=== PATIENT | male | born 1955 | race Caucasian/White ===

== ENCOUNTER 2016-10-09 10:54 | Observation (INO) | payer BC, OTHER ==
[~2016-10-09] VITALS: Ht 182.9 cm; Wt 91.0 kg
[2016-10-09] VITALS (8 sets, daily range): BP systolic 127–144; BP diastolic 74–84; PULSE 60–78; RESP 14–18; TEMP 98.1–98.3; O2SAT 96–100
[~2016-10-09 10:54] MED LIST: ALPR0.5T99 PO; FISH300C2 PO; PYRI25TA9 PO
[2016-10-09] MEDS ORDERED: GABA600T PO (11:07)
[2016-10-09] MEDS ORDERED: ACETAMINOPHEN/HYDROcodone 325 MG/5 MG TAB PO ONE (11:30)
[2016-10-09] MEDS ORDERED: SODIUM CHLORID 0.9% 500 ML INJ 500 ML IV ONE (11:30)
[2016-10-09 12:03] LABS: AUTOMATED NEUTROPHIL # 3.5 TH/MM3 (1.8-7.7); BASOPHIL % 0.8 % (0.0-2.0); EOSINOPHIL # 0.1 TH/MM3 (0-0.4); EOSINOPHIL % 1.7 % (0.0-4.0); HEMO FLAGS DIFF FINAL; LYMPH % 23.5 % (9.0-44.0); LYMPHOCYTE # 1.2 TH/MM3 (1.0-4.8); MEAN CELL VOLUME 92.1 FL (80.0-100.0); MEAN CORPUSCULAR HEMOGLOBIN 31.2 PG (27.0-34.0); MEAN CORPUSCULAR HGB CONC 33.9 % (32.0-36.0); MONO % 7.7 % (0.0-8.0); NEUT % 66.3 % (16.0-70.0); PLATELET COUNT 229 TH/MM3 (150-450); RED BLOOD COUNT 4.67 MIL/MM3 (4.50-5.90); RED CELL DISTRIBUTION WIDTH 12.8 % (11.6-17.2); WHITE BLOOD COUNT 5.2 TH/MM3 (4.0-11.0)
[2016-10-09 12:09] LABS: PROTHROMBIN TIME - PATIENT 10.8 SEC (9.8-11.6)
[2016-10-09 12:23] LABS: BICARBONATE 26.2 MEQ/L (21.0-32.0); POTASSIUM 4.7 MEQ/L (3.5-5.1)
[2016-10-09] MEDS ORDERED: IOHEXOL 350 MG/ML 10 ML VIAL (for RAD DIAG) IV ONE (13:06)
--- NOTE | 2016-10-09 13:39 | RADRPT ---
EXAM DATE/TIME: 10/09/2016 12:38 [facility] COMPARISON: No previous studies available for comparison. INDICATIONS : Trauma, fall from ladder today. IV CONTRAST: 86 cc Omnipaque 350 (iohexol) IV ORAL CONTRAST: No oral contrast ingested. RADIATION DOSE: 11.79 CTDIvol (mGy) ; Combined studies MEDICAL HISTORY : None SURGICAL HISTORY : None. ENCOUNTER: Initial ACUITY: 1 day PAIN SCALE: 8/10 LOCATION: Bilateral pelvis TECHNIQUE: Volumetric scanning of the pelvis was performed. Using automated exposure control and adjustment of the mA and/or kV according to patient size, radiation dose was kept as low as reasonabl y achievable to obtain optimal diagnostic quality images. FINDINGS: MUSCULOSKELETAL: Mildly comminuted fracture of the superior pubic ramus on the left extending int o the left pubic body, minimally displaced. One bone width displacement of MID inferior pubic ramus f racture on the left. Adjacent soft tissue swelling/small extraperitoneal hematoma adjacent to the pub ic rami fractures. Mild cortical irregularity of the anterior surface of the right sacral ala indica ting nondisplaced fracture. Sacroiliac joints show mild arthritic findings but are otherwise within n ormal limits. Bilateral pars interarticularis defects at L5. Grade 1 anterolisthesis. This finding is chronic. BOWEL/MESENTERY: The visualized small and large bowel demonstrate no acute abnormality. There is no free fluid. BLADDER: There is no wall thickening or mass. RETROPERITONEUM: There is no aneurysm or lymphadenopathy. REPRODUCTIVE: Within normal limits. INGUINAL: There is no lymphadenopathy or hernia. CONCLUSION: 1. Left-sided pubic rami fractures and right-sided nondisplaced sacral ala fracture. These findings a re acute. 2. Chronic pars interarticularis defects and grade 1 anterolisthesis of L5-S1. Dereck Ross MD on October 09, 2016 at 13:30 Board Certified Radiologist. This report was verified electronically.
--- NOTE | 2016-10-09 13:57 | PD ---
HPI Chief Complaint: Fall Time Seen by Provider: 11:21 Travel History International Travel<30 days: No Contact w/Intl Traveler<30days: No Traveled to known affect area: No History of Present Illness HPI Patient is a 61-year-old male who comes in complaining of elbow pain after fall today. He was on a ladder when a tree branch knocked the ladder out from under him and he fell he says, on his right hip. He says he feels a crunching in his groin area. He says he has increased pain with movement of his legs. He denies hitting his head. He denies any other injuries. He denies any pain to his back or his upper extremities. He was in his usual state of health prior to the event. [facility] Past Medical History Medical other: Yes (CHRONIC PAIN) Psychiatric: Yes Past Surgical History Other Surgery: Yes (BILAT CARPAL TUNNEL) Social History Alcohol Use: Yes (OCC) Tobacco Use: No Substance Use: No Allergies-Medications (Allergen,Severity, Reaction): Coded Allergies: No Known Allergies (Verified , 10/09/16) Reported Meds & Prescriptions Reported Meds & Active Scripts Active Reported Gabapentin Unknown Strength Tab Unknown Dose PO BID Review of Systems Except as stated in HPI: all other systems reviewed are Neg General / Constitutional: No: Fever, Chills HENT: No: Headaches, Lightheadedness Cardiovascular: No: Chest Pain or Discomfort Respiratory: No: Shortness of Breath Gastrointestinal: No: Nausea, Vomiting, Abdominal Pain Genitourinary: Positive: Pelvic Pain, No: Dysuria Musculoskeletal: Positive: Pain Skin: No Rash, No Change in Pigmentation Neurologic: No: Weakness, Dizziness Physical Exam Narrative GENERAL: Awake and alert, in no acute distress. SKIN: Focused skin assessment warm/dry. HEAD: Atraumatic. Normocephalic. EYES: Pupils equal and round. No scleral icterus. Extraocular movements intact. ENT: No nasal bleeding or discharge. Mucous membranes pink and moist. NECK: Trachea midline. No JVD. No cervical spine tenderness. CARDIOVASCULAR: Regular rate and rhythm. No murmur appreciated. RESPIRATORY: No accessory muscle use. Clear to auscultation. Breath sounds equal bilaterally. GASTROINTESTINAL: Abdomen soft, non-tender, nondistended. MUSCULOSKELETAL: No obvious deformities. No clubbing. No cyanosis. No edema. No tenderness to palpation of the pelvis. Pain with external and internal rotation of both hips. Pedal pulses intact. NEUROLOGICAL: Awake and alert. No obvious cranial nerve deficits. Motor grossly within normal limits. Normal speech. PSYCHIATRIC: Appropriate mood and affect; insight and judgment normal. Data Data Last Documented VS Vital Signs Date Time Temp Pulse Resp B/P Pulse Ox O2 Delivery O2 Flow Rate FiO2 10/09/16 11:01 98.1 64 16 144/[address] Lumb Spine W/O Contrast (10/09/16 ) Ct Pelvis W Iv Contrast(Rout) (10/09/16 ) Complete Blood Count With Diff (10/09/16 11:19) Basic Metabolic Panel (Bmp) (10/09/16 11:19) Act Partial Throm Time (Ptt) (10/09/16 11:19) Prothrombin Time / Inr (Pt) (10/09/16 11:19) Type And Screen (10/09/16 11:19) Acetamin-Hydrocod 325-5 Mg ([employer] 5-325 (10/09/16 11:30) Sodium Chlorid 0.9% 500 Ml Inj (Ns 500 M (10/09/16 11:30) Iohexol 350 Inj (Omnipaque 350 Inj) (10/09/16 13:06) Morphine Inj (Morphine Inj) (10/09/16 15:30) Admit Order (Ed Use Only) (10/09/16 ) Labs Laboratory Tests Test 10/09/16 11:30 White Blood Count 5.2 TH/MM3 Red Blood Count 4.67 MIL/MM3 Hemoglobin 14.6 GM/DL Hematocrit 43.0 % Mean Corpuscular Volume 92.1 FL Mean Corpuscular Hemoglobin 31.2 PG Mean Corpuscular Hemoglobin 33.9 % Concent Red Cell Distribution Width 12.8 % Platelet Count 229 TH/MM3 Mean Platelet Volume 8.3 FL Neutrophils (%) (Auto) 66.3 % Lymphocytes (%) (Auto) 23.5 % Monocytes (%) (Auto) 7.7 % Eosinophils (%) (Auto) 1.7 % Basophils (%) (Auto) 0.8 % Neutrophils # (Auto) 3.5 TH/MM3 Lymphocytes # (Auto) 1.2 TH/MM3 Monocytes # (Auto) 0.4 TH/MM3 Eosinophils # (Auto) 0.1 TH/MM3 Basophils # (Auto) 0.0 TH/MM3 CBC Comment DIFF FINAL Differential Comment Prothrombin Time 10.8 SEC Prothromb Time International 1.0 RATIO Ratio Activated Partial 24.0 SEC Thromboplast Time Sodium Level 140 MEQ/L Potassium Level 4.7 MEQ/L Chloride Level 107 MEQ/L Carbon Dioxide Level 26.2 MEQ/L Anion Gap 7 MEQ/L Blood Urea Nitrogen 16 MG/DL Creatinine 0.84 MG/DL Estimat Glomerular Filtration 93 ML/MIN Rate Random Glucose 92 MG/DL Calcium Level 8.3 MG/DL Blood Type A POSITIVE Antibody Screen NEGATIVE MDM Medical Decision Making Medical Screen Exam Complete: Yes Emergency Medical Condition: Yes Medical Record Reviewed: Yes Differential Diagnosis Hip fracture versus pelvic fracture versus lumbar spine fracture Narrative Course Patient is a 61-year-old male comes in complaining of pelvic pain after a fall today. Exam shows pain with movement of both his legs. IV established, labs sent. Labs show no acute abnormalities. CT of the lumbar spine, pelvis performed. CT shows fracture of the pubic gram eye on the left as well as a sacral fracture. Patient given morphine for pain, he says this is helping. I spoke with Dr. Driscoll of orthopedics who says injuries nonoperable. He suggests pain control. Patient will be placed in observation for further management. Diagnosis Primary Impression: Pelvic fracture Qualified Code: S32.82XA - Multiple closed fractures of pelvis without disruption of pelvic ring, initial encounter Additional Impression: Sacral fracture, closed Qualified Code: S32.10XA - Closed fracture of sacrum, unspecified portion of sacrum, initial encounter Admitting Information Admitting Physician Requests: Observation Condition: Stable Roxana Thorne MD Oct 09, 2016 13:57
--- NOTE | 2016-10-09 14:06 | RADRPT ---
EXAM DATE/TIME: 10/09/2016 12:38 [facility] COMPARISON: No previous studies available for comparison. INDICATIONS : Trauma, fall from ladder today. RADIATION DOSE: ; Reconstructed from previous dataset MEDICAL HISTORY : None SURGICAL HISTORY : None. ENCOUNTER: Initial ACUITY: 1 day PAIN SCALE: 0/10 LOCATION: Bilateral lower back TECHNIQUE: Volumetric scanning of the lumbar spine was performed. Multiplanar reconstructions in the sagittal, coronal and oblique axial planes were performed. Using automated exposure control and adjustment of the mA and/or kV according to patient size, radiation dose was kept as low as reasonably achievable t o obtain optimal diagnostic quality images. FINDINGS: VERTEBRAE: Bilateral pars interarticularis defects at L5. Grade 1 anterolisthesis L5 on S1. Smooth corticated ma rgins indicate chronic age. No evidence of acute fracture in the lumbar region. Right-sided sacral al a fracture nondisplaced. ALIGNMENT: No evidence of subluxation. T12-L1: The thecal sac has a normal diameter. No evidence of disc bulge or protrusion. The neural foramina are patent bilaterally. L1-L2: Broad-based disc bulge. No evidence of focal disc protrusion. Central canal normal diameter. Neural f oraminal diameters within normal limits. L2-L3: Broad-based disc bulge. No evidence of focal disc protrusion. Central canal normal diameter. Neural f oraminal diameters within normal limits. L3-L4: Broad-based disc bulge. No evidence of focal disc protrusion. Central canal normal diameter. Neural f oraminal diameters within normal limits. L4-L5: Broad-based disc bulge. Bilateral facet arthrosis. No evidence of focal disc protrusion. Central jaylen l normal diameter. Neural foraminal diameters within normal limits. L5-S1: Pars interarticularis defects and grade 1 anterolisthesis. Moderate bilateral neuroforaminal narrowin g. Central canal diameter within normal limits. CONCLUSION: 1. Right-sided sacral ala fracture. 2. Chronic pars interarticularis defects and grade 1 anterolisthesis of L5-S1. Dereck Ross MD on October 09, 2016 at 13:59 Board Certified Radiologist. This report was verified electronically.
[2016-10-09] MEDS ORDERED: MORPHINE SULFATE 4 MG/ML INJ IV PUSH ONE (15:30)
[2016-10-09] MEDS ORDERED: BISACODYL 10 MG SUPP RECTAL PRN (16:30)
[2016-10-09] MEDS ORDERED: ACETAMINOPHEN 325 MG TAB PO PRN (16:30)
[2016-10-09] MEDS ORDERED: ONDANSETRON HCL 4 MG/2 ML VIAL IVP PRN (16:30)
[2016-10-09] MEDS ORDERED: NALOXONE HCL 0.4 MG/ML AMP IV PRN (16:30)
[2016-10-09] MEDS ORDERED: LACTULOSE SYRUP 20 GM/30 ML CUP PO PRN (16:30)
[2016-10-09] MEDS ORDERED: SENNOSIDES 8.6 MG TAB PO PRN (16:30)
[2016-10-09] MEDS ORDERED: MAGNESIUM HYDROXIDE SUSP 30 ML CUP PO PRN (16:30)
[2016-10-09] MEDS ORDERED: SODIUM CHLORIDE 0.9% FLUSH 10 ML FLUSH IV FLUSH PRN (16:30)
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
[2016-10-09] MEDS: DOCUSATE SODIUM 50 MG/SENNA 8.6 MG TAB PO SCH (20:14)
[2016-10-09] MEDS: ACETAMINOPHEN/HYDROcodone 325 MG/7.5 MG TAB PO PRN (20:14)
[2016-10-09] MEDS: SODIUM CHLORIDE 0.9% FLUSH 10 ML FLUSH IV FLUSH SCH (20:14)
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
[2016-10-10] VITALS (7 sets, daily range): BP systolic 124–142; BP diastolic 68–87; PULSE 70–82; RESP 18; TEMP 98–99.9; O2SAT 95–96
[2016-10-10] MEDS: MORPHINE SULFATE 4 MG/ML INJ IV PRN ×5 (00:34→19:59)
[2016-10-10] MEDS: ZOLPIDEM TARTRATE 5 MG TAB PO PRN ×2 (00:35→03:33)
--- NOTE | 2016-10-10 08:53 | HHI.PR ---
Subjective Subjective Remarks C/O hip and back pain has not been out of bed voiding okay no cp no sob no fever wants to go to rehab, doesn't have an appropriate home situation with . She won't be able to assist Review of Systems Constitutional Constitutional Remarks 12 point ROS completed, negative except as noted above Vitals/Results Vital Signs Vital Signs Date Time Temp Pulse Resp B/P Pulse Ox O2 Delivery O2 Flow Rate FiO2 10/10/16 08:42 98.3 74 18 139/87 96 10/10/16 06:00 137/79 10/10/16 03:24 98.2 70 18 142/80 96 10/09/16 23:36 98.3 78 18 127/74 96 10/09/16 19:42 98.1 70 18 136/79 98 10/09/16 19:01 60 14 136/76 98 Room Air 10/09/16 17:12 64 16 140/84 97 Room Air 10/09/16 15:00 62 16 142/78 99 Room Air 10/09/16 14:00 64 14 140/77 97 Room Air 10/09/16 13:00 60 16 134/74 97 Room Air 10/09/16 11:01 98.1 64 16 144/76 100 CBC/BMP: 10/09/16 1130 10/09/16 1130 Lab Results Laboratory Tests Test 10/09/16 11:30 White Blood Count 5.2 TH/MM3 Red Blood Count 4.67 MIL/MM3 Hemoglobin 14.6 GM/DL Hematocrit 43.0 % Mean Corpuscular Volume 92.1 FL Mean Corpuscular Hemoglobin 31.2 PG Mean Corpuscular Hemoglobin 33.9 % Concent Red Cell Distribution Width 12.8 % Platelet Count 229 TH/MM3 Mean Platelet Volume 8.3 FL Neutrophils (%) (Auto) 66.3 % Lymphocytes (%) (Auto) 23.5 % Monocytes (%) (Auto) 7.7 % Eosinophils (%) (Auto) 1.7 % Basophils (%) (Auto) 0.8 % Neutrophils # (Auto) 3.5 TH/MM3 Lymphocytes # (Auto) 1.2 TH/MM3 Monocytes # (Auto) 0.4 TH/MM3 Eosinophils # (Auto) 0.1 TH/MM3 Basophils # (Auto) 0.0 TH/MM3 CBC Comment DIFF FINAL Differential Comment Prothrombin Time 10.8 SEC Prothromb Time International 1.0 RATIO Ratio Activated Partial 24.0 SEC Thromboplast Time Sodium Level 140 MEQ/L Potassium Level 4.7 MEQ/L Chloride Level 107 MEQ/L Carbon Dioxide Level 26.2 MEQ/L Anion Gap 7 MEQ/L Blood Urea Nitrogen 16 MG/DL Creatinine 0.84 MG/DL Estimat Glomerular Filtration 93 ML/MIN Rate Random Glucose 92 MG/DL Calcium Level 8.3 MG/DL Blood Type A POSITIVE Antibody Screen NEGATIVE Physical Exam General General Appearance: Well Developed, Well Nourished, No Acute Distress, Comfortable Eyes Eye Exam: Pupils Equal, Pupils Reactive Ears & Nose Ears & Nose Exam: Nasal Mucosa [place] Throat Throat Exam: Oral Mucosa [place] & Moist Neck Neck Exam: Neck Supple, Trachea Midline Pulmonary Resp Exam: Clear Bilaterally Cardiology CV Exam: Regular, Good Perfusion Gastrointestinal/Abdomen GI Exam: Soft, Non-Tender, Bowel Sounds Present, Non-Distended Musculoskeletal MS Exam: Joints Intact Integumentary Skin Exam: Warm, Dry Extremeties Extremities Exam: No Edema, Pedal Pulses Palpable Neurologic Neuro Exam: Alert, Awake, Oriented, Speech Clear, Moving All Extremities, No Focal Deficits Psychiatric Psych Exam: Appropriate Responses VTE Prophylaxis VTE Prophylaxis Meds: Lovenox Assessment/Plan Problem List: (1) Sacral fracture, closed (2) Chronic back pain (3) Fracture of left inferior pubic ramus (4) Fracture of superior ramus of left pubis Assessment/Plan 61-year-old male patient admitted after a tree branch knocked off the ladder he was standing on, he fell a proximally 4-5 feet. Left sided pubic rami fracture and right-sided nondisplaced sacral fracture. -Consult orthopedic, Dr. Driscoll evaluated, input appreciated. Non surgical management -pain management Physical therapy for evaluation Case management for assistance with DC planning, will need home health care and PT or poss. SNF Chronic back pain -Continue with current pain management SCDs/Lovenox 40 mg SQ daily for DVT prophylaxis will wait for PT eval and CM input to plan dc D/W RN D/W Dr. Camacho D/W pt This patient was seen by myself and Dr. Camacho, this note is written on her behalf Problem Qualifiers (1) Sacral fracture, closed: Qualified Code: S32.10XA - Closed fracture of sacrum, unspecified portion of sacrum, initial encounter (2) Chronic back pain: Qualified Code: M54.5 - Chronic low back pain without sciatica, unspecified back pain laterality Devi Lr [facility] Oct 10, 2016 08:53
[2016-10-10] MEDS: DOCUSATE SODIUM 50 MG/SENNA 8.6 MG TAB PO SCH ×2 (09:00→20:02)
[2016-10-10] MEDS: SODIUM CHLORIDE 0.9% FLUSH 10 ML FLUSH IV FLUSH SCH ×2 (09:32→20:02)
[2016-10-10] MEDS: ENOXAPARIN SODIUM 40 MG/0.4 ML SYRINGE SQ SCH (09:32)
[2016-10-10] MEDS: ACETAMINOPHEN/HYDROcodone 325 MG/7.5 MG TAB PO PRN ×2 (09:35→22:45)
[2016-10-10] MEDS ORDERED: ZOLPIDEM TARTRATE 10 MG TAB PO PRN (13:00)
[2016-10-10] MEDS ORDERED: CYCLOBENZAPRINE HCL 10 MG TAB PO PRN (16:00)
[2016-10-11 00:19] VITALS: BP 164/87; PULSE 72; RESP 18; O2SAT 95
[2016-10-11] MEDS: MORPHINE SULFATE 4 MG/ML INJ IV PRN ×3 (00:50→12:02)
[2016-10-11 03:13] VITALS: BP 138/84; PULSE 75; RESP 18; TEMP 98.3; O2SAT 97
--- NOTE | 2016-10-11 07:55 | HHI.PR ---
Subjective Subjective Remarks c/o inc. pain with movement, doesn't want to get up to commode and bedpan no cp no sob no fever no acute changes overnight Review of Systems Constitutional Constitutional Remarks 12 point ROS completed, negative except as noted above Vitals/Results Intake & Output 10/10/16 10/10/16 10/11/16 15:00 23:00 07:00 Intake Total 240 ml Balance 240 ml Intake Oral 240 ml # Voids 2 Vital Signs Vital Signs Date Time Temp Pulse Resp B/P Pulse Ox O2 Delivery O2 Flow Rate FiO2 10/11/16 03:13 98.3 75 18 138/84 97 10/11/16 00:19 72 18 164/87 95 10/10/16 22:47 98.5 10/10/16 19:22 99.9 82 18 135/77 96 10/10/16 16:00 18 10/10/16 16:00 98.7 78 18 133/75 95 10/10/16 12:00 98.0 79 18 124/68 95 10/10/16 08:42 98.3 74 18 139/87 96 CBC/BMP: 10/09/16 1130 10/09/16 1130 Physical Exam General General Appearance: Well Developed, Well Nourished, No Acute Distress, Comfortable Eyes Eye Exam: Pupils Equal, Pupils Reactive Ears & Nose Ears & Nose Exam: Nasal Mucosa [place] Throat Throat Exam: Oral Mucosa [place] & Moist Neck Neck Exam: Neck Supple, Trachea Midline Pulmonary Resp Exam: Clear Bilaterally Cardiology CV Exam: Regular, Good Perfusion Gastrointestinal/Abdomen GI Exam: Soft, Non-Tender, Bowel Sounds Present, Non-Distended Musculoskeletal MS Exam: Joints Intact Integumentary Skin Exam: Warm, Dry Extremeties Extremities Exam: No Edema, Pedal Pulses Palpable Neurologic Neuro Exam: Alert, Awake, Oriented, Speech Clear, Moving All Extremities, No Focal Deficits Psychiatric Psych Exam: Appropriate Responses VTE Prophylaxis VTE Prophylaxis Meds: Lovenox Assessment/Plan Problem List: (1) Sacral fracture, closed (2) Chronic back pain (3) Fracture of left inferior pubic ramus (4) Fracture of superior ramus of left pubis Assessment/Plan 61-year-old male patient admitted after a tree branch knocked off the ladder he was standing on, he fell a proximally 4-5 feet. Left sided pubic rami fracture and right-sided nondisplaced sacral fracture. -Consult orthopedic, Dr. Driscoll evaluated, input appreciated. Non surgical management -pain management continue with PT and OOB Chronic back pain -Continue with current pain management SCDs/Lovenox 40 mg SQ daily for DVT prophylaxis PT recommends rehab CM for dc planning, pt. would like [facility] Discharge when arrangements made D/W RN D/W attending D/W pt This patient was seen by myself and attending, this note is written on their behalf Problem Qualifiers (1) Sacral fracture, closed: Qualified Code: S32.10XA - Closed fracture of sacrum, unspecified portion of sacrum, initial encounter (2) Chronic back pain: Qualified Code: M54.5 - Chronic low back pain without sciatica, unspecified back pain laterality Devi L[facility] Oct 11, 2016 07:55
[2016-10-11 08:14] VITALS: BP 151/84; PULSE 75; RESP 18; TEMP 98.5; O2SAT 100
[2016-10-11] MEDS: ACETAMINOPHEN/HYDROcodone 325 MG/7.5 MG TAB PO PRN (10:06)
[2016-10-11] MEDS: DOCUSATE SODIUM 50 MG/SENNA 8.6 MG TAB PO SCH (10:06)
[2016-10-11] MEDS: ENOXAPARIN SODIUM 40 MG/0.4 ML SYRINGE SQ SCH (10:07)
[2016-10-11] MEDS: SODIUM CHLORIDE 0.9% FLUSH 10 ML FLUSH IV FLUSH SCH (10:07)
--- NOTE | 2016-10-11 10:14 | HHI.DCPOC ---
Discharge Care Plan Diagnosis: (1) Pelvic fracture (2) Sacral fracture, closed (3) Chronic back pain (4) Fracture of left inferior pubic ramus (5) Fracture of superior ramus of left pubis Your Health Problems Are: Difficulty with ADL Goals to Promote Your Health * To prevent worsening of your condition and complications * To maintain your health at the optimal level Directions to Meet Your Goals Take your medications as prescribed Follow your dietary instruction Follow activity as directed Keep your appointments as scheduled Take your immunizations and boosters as scheduled If your symptoms worsen call your PCP, if no PCP go to Urgent Care Center or Emergency Room Smoking is Dangerous to Your Health. Avoid second hand smoke Call the 24-hour hour crisis hotline for domestic abuse at [facility] Oct 11, 2016 10:14
--- NOTE | 2016-10-11 12:26 | HHI.DS ---
Discharge Summary Admission Date Oct 09, 2016 at 15:50 Discharge Date: Oct 11, 2016 Admitting Diagnosis Pelvic fracture (1) Sacral fracture, closed (2) Pelvic fracture (3) Chronic back pain CBC/BMP: 10/09/16 1130 10/09/16 1130 Significant Findings Laboratory Tests Test 10/09/16 11:30 Activated Partial 24.0 SEC Thromboplast Time (24.3-30.1) Calcium Level 8.3 MG/DL (8.5-10.1) Imaging Last Impressions Pelvis CT 10/09/16 0000 Signed Impressions: Service Date/Time: Sunday, October 09, 2016 12:38 - CONCLUSION: 1. Left-sided pubic rami fractures and right-sided nondisplaced sacral ala fracture. These findings are acute. 2. Chronic pars interarticularis defects and grade 1 anterolisthesis of L5-S1. Dereck Ross MD Lumbar Spine CT 10/09/16 0000 Signed Impressions: Service Date/Time: Sunday, October 09, 2016 12:38 - CONCLUSION: 1. Right-sided sacral ala fracture. 2. Chronic pars interarticularis defects and grade 1 anterolisthesis of L5-S1. Dereck Ross MD Hospital Course This is a 61-year-old male with no significant past medical history other than some chronic back pain treated with gabapentin. Patient presented to the emergency room after falling off a ladder. Patient states he was up on a ladder trimming a tree when a branch fell off and knocked the ladder out from under him. He fell approximately 4-5 feet and landed on his right hip. He felt a crunching in the right area. He had increased pain with movement of the legs and could not stand. He did not hit his head, no neck pain. No paresthesias. Presented to the emergency room, was evaluated. Laboratory workup was essentially unremarkable. Imaging studies were done that showed fracture of the pubic rami on the left as well as a sacral fracture. Dr. Driscoll was contacted from the emergency room, no surgical repair recommended. Patient needed admission for pain control and physical therapy. Last Impressions Pelvis CT 10/09/16 0000 Signed Impressions: Service Date/Time: Sunday, October 09, 2016 12:38 - CONCLUSION: 1. Left-sided pubic rami fractures and right-sided nondisplaced sacral ala fracture. These findings are acute. 2. Chronic pars interarticularis defects and grade 1 anterolisthesis of L5-S1. Dereck Ross MD Lumbar Spine CT 10/09/16 0000 Signed Impressions: Service Date/Time: Sunday, October 09, 2016 12:38 - CONCLUSION: 1. Right-sided sacral ala fracture. 2. Chronic pars interarticularis defects and grade 1 anterolisthesis of L5-S1. Dereck Ross MD Patient was admitted for further evaluation and treatment for: (1) Sacral fracture, closed (2) Chronic back pain (3) Fracture of left inferior pubic ramus (4) Fracture of superior ramus of left pubis During the course of the hospitalization the following took place: 61-year-old male patient admitted after a tree branch knocked off the ladder he was standing on, he fell a proximally 4-5 feet. Left sided pubic rami fracture and right-sided nondisplaced sacral fracture. -Consult orthopedic, Dr. Driscoll evaluated, input appreciated. Non surgical management -pain management ordered -Dr. Driscoll evaluated, nonsurgical management was recommended -Physical therapy was consulted, as this dictation out of bed. Patient very painful, he will not be able to do well at home therefore SNF was recommended. Chronic back pain -Continued with current pain management SCDs/Lovenox 40 mg SQ daily for DVT prophylaxis CM for dc planning, pt. chose [facility] Pt. discharged in stable condition Pt Condition on Discharge: Stable Discharge Disposition: Discharge to SNF Discharge Instructions DIET: Follow Instructions for: Heart Healthy Diet Activities you can perform: Weight Bearing as Elise Follow up Referrals: Orthopedics PCP Follow-up New Medications: Cyclobenzaprine (Flexeril) 10 Mg Tab 10 MG PO Q8H PRN muscle spasms #90 TAB Continued Medications: Gabapentin (Gabapentin) Unknown Strength Tab Unknown Dose PO BID #60 Ref 0 TAB Devi Lr Oct 11, 2016 12:26
[2016-10-11] MEDS ORDERED: HYDR-3580 PO (12:52)
[2016-10-11] MEDS ORDERED: CYCL1TAB29 PO (12:52)
== END 2016-10-11 14:16 | disposition home or self-care (01) ==
LOC: NEPC 10:54 → NEDA 15:50 → NEPHCDU 19:32
PROVIDERS: ADMIT Internal Medicine; ATTEND Internal Medicine
DX: S32.10XA Unspecified fracture of sacrum, initial encounter for closed fracture (principal); S32.592A Other specified fracture of left pubis, initial encounter for closed fracture; G89.29 Other chronic pain; M54.9 Dorsalgia, unspecified; W11.XXXA Fall on and from ladder, initial encounter; Y93.H2 Activity, gardening and landscaping
CPT/HCPCS: 72131; 72193; 80048; 85025; 85610; 85730; 86850; 86900; 86901; 96361; 96372; 96374; 96375; 96376; 97162; 97167; 97530; 99285; G0378; G8987; G8988; J1650; J2270; J7040; Q9967

== ENCOUNTER 2017-06-16 06:01 | Inpatient (IN) | payer OTHER ==
[~2017-06-16] VITALS: Ht 182.9 cm; Wt 90.8 kg
[~2017-06-16 06:01] MED LIST changes: -ALPR0.5T99 PO; +CYCL10TA PO; -FISH300C2 PO; +GABA600T PO; -PYRI25TA9 PO
[2017-06-16] MEDS ORDERED: VANCOMYCIN 1 GM/200 ML INJ 200 ML IV ONE (06:35)
[2017-06-16] MEDS ORDERED: SODIUM CHLORID 0.9% 500 ML IV PRN (06:45)
[2017-06-16] MEDS ORDERED: LACTATED RINGER'S 1000 ML IV PRN (06:45)
[2017-06-16] MEDS ORDERED: CHLORHEXIDINE GLUCONATE 2 % 1 PACK (2 CLOTHS) TOPICAL PRN (06:45)
[2017-06-16] MEDS ORDERED: VANCOMYCIN 1 GM/200 ML INJ 200 ML IV SCH (06:45)
[2017-06-16] MEDS ORDERED: CHLORHEXIDINE GLUCONATE 4% SOLN 120 ML BTL TOPICAL SCH (06:45)
[2017-06-16] MEDS ORDERED: METOPROLOL TARTRATE 25 MG TAB PO PRN (06:45)
[2017-06-16] MEDS ORDERED: POVIDONE IODINE 5% (ANTISEPSIS KIT) 4 APPLICATIONS EACH NARE PRN (06:45)
[2017-06-16] MEDS ORDERED: MELO15TA20 PO (07:03)
[2017-06-16] MEDS ORDERED: TRAZ1TAB14 PO (07:03)
[2017-06-16] MEDS ORDERED: GABA600T PO (07:03)
[2017-06-16] MEDS ORDERED: GENTAMICIN SULFATE 80 MG/2 ML VIAL ONE (07:11)
[2017-06-16] MEDS ORDERED: BUPIVACAINE/EPINEPHRINE 0.25% 50 ML VIAL ONE (07:17)
[2017-06-16] MEDS ORDERED: ceFAZolin 2 GM PREMIX 50 ML ONE (07:54)
[2017-06-16] MEDS ORDERED: PROPOFOL 500 MG/50 ML INJ 100 ML ONE (08:08)
[2017-06-16] MEDS ORDERED: ACETAMINOPHEN 1000 MG/100 ML 100 ML IV ONE (08:08)
--- NOTE | 2017-06-16 11:29 | PD.OP ---
cc: Gunnar Meek MD; Jose Meek MD Operative Report Date of Surgery: Jun 16, 2017 Preoperative Diagnosis: Osteophyte disc complex C3 4. Osteophyte disc complex C4 5. Bilateral cervical radiculopathy, left greater than right. Cervical spinal stenosis. Postoperative Diagnosis: Same Procedure: Anterior cervical discectomy and decompression with bilateral foraminotomies, C3 4. Anterocervical discectomy and decompression with bilateral foraminotomies, C45. Right anterior iliac crest bone graft Anesthesia: Gen. Surgeon: Jose Meek Wool Shearer(s): MARCOS Davis Operation and Findings: EBL: 100 cc INDICATIONS: This patient is a 61-year-old white male with cervical spinal stenosis and evidence of a bilateral cervical radiculopathy related to the above condition. The patient had extensive conservative care which is represented in the attached records. Despite conservative care the patient's painful and having progressive weakness. He now presents for surgical treatment NOTE: Shilpa Davis PA-C was present for the entire surgical procedure as my assistant finance director. In my medical opinion her skill and care was necessary for proper management of this patient PROCEDURE: The patient was brought to the operating room and anesthetized in the supine position. This patient was positioned supine on the radiolucent table. All pressure points were protected in the anterior cervical spine and iliac crest was scrubbed with alcohol followed by Hibiclens followed by ChloraPrep. A timeout was done and antibiotics were given within 1 hour time window. Lateral radiographic images were used identifying the proper level. A right anterior incision was made in line with skin creases. The platysma was opened in line with the incision. Deep dissection continued in the interval between the carotid sheath and the esophagus. The longus-coli muscles were lifted on both sides and retractors were positioned allowing good exposure. Lateral radiographic images were used to identify the proper level. [place] style interosseous pins were placed at C3 and 4 allowing exposure to that level. The microscope was rolled into the field. A total discectomy was accomplished and posterior osteophytes were removed. The posterior longitudinal ligament and annulus was taken down. Bilateral foraminotomies were accomplished. The endplates were squared up anticipating later bone grafting. A blunt probe could be placed out each foramen without evidence of nerve root compromise. The C3 pin was placed down to C5. An anterior exposure was accomplished. We performed a total discectomy with excision of the posterior annulus and posterior longitudinal ligament. Bilateral foraminotomies were accomplished. Osteophytes were removed. The endplates were squared up anticipating later bone grafting. A blunt probe could be placed out each foramen without evidence of nerve root compromise. The left iliac crest was approached. A small stab incision was made allowing percutaneous access to the anterior iliac crest. Multiple cores of cancellous bone were harvested and taken to the back table to be used for later bone grafting. The wound was irrigated anesthetized and closed with 4-0 Vicryl followed by Dermabond. The case was turned over to Dr. Gunnar Meek for fusion and instrumentation per his dictation. FINDINGS: There was evidence of a significant central stenosis related to a calcified osteophyte disc complex at both levels. The patient had greater stenosis at the C4 5 level than the C3 4 level, but both levels had significant spinal stenosis. Bilateral foraminotomies were [place]. There was no complication was appreciated. NOTE: This surgery was performed in 2 parts. The first part was the neurosurgical decompression performed under the variable power stereo microscope by the undersigned in addition to the bone graft. The second portion of the surgery will be performed by the orthopedic spine component by co -surgeon, Dr. Gunnar Meek for the anterior fusion with interbody cage and anterior plate. The skill of 2 surgeons was necessary to perform distinct separate procedural services as dictated above and dictated in the following operative note by Dr. Gunnar Meek. Jose Meek MD Jun 16, 2017 11:27
[2017-06-16] MEDS ORDERED: BISACODYL 10 MG SUPP RECTAL PRN (11:30)
[2017-06-16] MEDS ORDERED: ONDANSETRON HCL 4 MG/2 ML VIAL IV PUSH PRN (11:30)
[2017-06-16] MEDS ORDERED: HYDR-3580 PO (11:30)
[2017-06-16] MEDS ORDERED: MORPHINE SULFATE 4 MG/ML INJ IV PUSH PRN (11:30)
[2017-06-16] MEDS ORDERED: PROPOFOL 200 MG/20 ML AMP IV ONE (12:00)
[2017-06-16] MEDS ORDERED: NORMOSOL R INJ 2,000 ML IV ONE (12:00)
[2017-06-16] MEDS ORDERED: ROCURONIUM INJ 50 MG/5 ML SYRINGE IV PUSH ONE (12:00)
[2017-06-16] MEDS ORDERED: PHENYLEPH/NS 1000 MCG/10 ML SYR IV ONE (12:00)
[2017-06-16] MEDS ORDERED: NEOSTIGMINE 5 MG/5 ML SYRINGE IV PUSH ONE (12:00)
[2017-06-16] MEDS ORDERED: LIDOCAINE HCL 1% PF 5 ML SYRINGE OTHER ONE (12:00)
[2017-06-16] MEDS ORDERED: ePHEDrine/NS 25 MG/5 ML SYRINGE IV ONE (12:00)
[2017-06-16] MEDS ORDERED: GLYCOPYRROLATE 1 MG/5 ML SYRINGE IV PUSH ONE (12:00)
[2017-06-16] MEDS ORDERED: ONDANSETRON HCL 4 MG/2 ML VIAL IV ONE (12:00)
[2017-06-16] MEDS ORDERED: NALOXONE HCL 0.4 MG/ML AMP ONE (12:35)
[2017-06-16] MEDS: GABAPENTIN 300 MG CAP PO SCH ×2 (13:00→16:43)
[2017-06-16] MEDS ORDERED: DO NOT ADM ANY ANTICOAGULANT DRUGS PRN (13:06)
[2017-06-16] MEDS: LACTATED RINGER'S 1000 ML INJ 1,000 ML IV SCH ×2 (13:15→23:51)
[2017-06-16] MEDS ORDERED: *morphine SULFATE 4 MG/ML PERIprocedure ONLY ONE ×2 (13:27→14:41)
[2017-06-16] MEDS ORDERED: *MEPERIDINE 25 MG INJ VIAL PERIprocedural Use ONLY ONE (13:31)
--- NOTE | 2017-06-16 14:22 | RADRPT ---
EXAM DATE/TIME: 06/16/2017 12:08 [place] COMPARISON: No previous studies available for comparison. INDICATIONS : C3-4, C4-5 Anterior cervical disc fusion. MEDICAL HISTORY : None. SURGICAL HISTORY : None. ENCOUNTER: Initial ACUITY: 1 day PAIN SCORE: Non-responsive. LOCATION: Cervical spine. FINDINGS: Anterior fusion hardware is noted in good position from C3 through C5. CONCLUSION: Status post anterior cervical fusion from C3 through C5. Moshe Foote MD on June 16, 2017 at 14:16 Board Certified Radiologist. This report was verified electronically.
[2017-06-16] MEDS ORDERED: ACETAMINOPHEN/HYDROcodone 325 MG/7.5 MG TAB PO PRN (14:30)
[2017-06-16] MEDS ORDERED: Post-op Orders (for Pharmacy) XX ONE (15:00)
[2017-06-16] MEDS: ACETAMINOPHEN/HYDROcodone 325 MG/7.5 MG TAB PO PRN ×2 (16:43→20:53)
[2017-06-16 20:00] VITALS: BP 151/81; PULSE 70; RESP 16; TEMP 97; O2SAT 100
[2017-06-16] MEDS ORDERED: traZODone HCL 50 MG TAB PO SCH (21:00)
[2017-06-17] VITALS: BP_SYST 111; BP_SYST 133; BP_DIAS 68; BP_DIAS 70; PULSE 70; PULSE 95; RESP 16; TEMP 97.7; TEMP 98.2; O2SAT 98; O2SAT 99
[2017-06-17 04:00] VITALS: BP 143/79; PULSE 79; RESP 15; TEMP 96.7; O2SAT 98
[2017-06-17] MEDS: ACETAMINOPHEN/HYDROcodone 325 MG/7.5 MG TAB PO PRN ×2 (04:55→12:58)
[2017-06-17 08:00] VITALS: BP 139/80; PULSE 87; RESP 16; TEMP 96.7; O2SAT 95
--- NOTE | 2017-06-17 08:00 | PD.ORT.PN ---
Subjective Subjective Remarks No significant complaints. Comfortable. No issues. Mild right shoulder pain Objective Vitals Vital Signs Date Time Temp Pulse Resp B/P (MAP) Pulse Ox O2 Delivery O2 Flow Rate FiO2 06/17/17 04:00 96.7 79 15 143/79 (100) 98 06/17/17 00:00 98.2 70 16 133/70 (91) 99 06/16/17 20:50 Nasal Cannula 2.00 06/16/17 20:00 97.0 70 16 151/81 (104) 100 06/16/17 17:09 Nasal Cannula 2.00 06/16/17 15:32 98.0 63 16 125/69 (87) 100 Nasal Cannula 2 06/16/17 15:00 63 16 123/68 (86) 99 Nasal Cannula 2 06/16/17 14:30 69 16 127/72 (90) 99 Nasal Cannula 2 06/16/17 14:15 68 15 121/68 (85) 99 Nasal Cannula 2 06/16/17 14:00 70 17 120/69 (86) 99 Nasal Cannula 2 06/16/17 13:45 62 17 119/61 (80) 99 Nasal Cannula 2 06/16/17 13:30 76 17 142/82 (102) 99 Nasal Cannula 2 06/16/17 13:15 79 16 143/79 (100) 99 Nasal Cannula 2 06/16/17 13:00 84 16 123/72 (89) 99 Nasal Cannula 2 06/16/17 12:53 97.4 100 16 126/71 (89) 100 Nasal Cannula 2 I/O 06/16/17 06/16/17 06/16/17 06/17/17 06/17/17 06/17/17 07:00 15:00 23:00 07:00 15:00 23:00 Intake Total 4800 ml 200 ml Output Total 50 ml 50 ml Balance 4750 ml -50 ml 200 ml Intake Oral 200 ml IV Total 4800 ml Output Urine Total 50 ml Estimated Blood Loss 50 ml # Voids 1 Objective Remarks Dressing dry. Brace fits well. Motor examination both arms 5/5. Sensation normal. Mild pain right hip Assessment & Plan Ortho Post Op Day #: 1 Problem List: Assessment and Plan Cervical spinal stenosis C3 4, C4 5. Cervical radiculopathy. Surgery: ACDF C3 4, C4 5, right iliac crest bone graft: POD #1. PLAN: Brace full-time except for shower after a few days. [place] for pain. Discharge today to home. Dry dressing change. Follow-up in 2 weeks. No need for home healthcare Jose Meek MD Jun 17, 2017 08:00
--- NOTE | 2017-06-17 08:07 | HHI.DCPOC ---
Discharge Care Plan Diagnosis: (1) Cervical spinal stenosis (2) Cervical radicular pain Your Health Problems Are: Incision/Drains Inflammation Goals to Promote Your Health * To prevent worsening of your condition and complications * To maintain your health at the optimal level Directions to Meet Your Goals Take your medications as prescribed Follow your dietary instruction Follow activity as directed Keep your appointments as scheduled Take your immunizations and boosters as scheduled If your symptoms worsen call your PCP, if no PCP go to Urgent Care Center or Emergency Room Smoking is Dangerous to Your Health. Avoid second hand smoke Call the 24-hour hour crisis hotline for domestic abuse at Roxana Limon Jun 17, 2017 08:07
--- NOTE | 2017-06-17 08:07 | HHI.DS ---
Discharge Summary Admission Date Jun 16, 2017 at 06:01 Discharge Date: Jun 17, 2017 Admitting Diagnosis see below Diagnosis: (1) Cervical spinal stenosis Diagnosis: Principal ICD Codes: M48.02 - Spinal stenosis, cervical region (2) Cervical radicular pain Diagnosis: Principal ICD Codes: M54.12 - Radiculopathy, cervical region Procedures ACDF C34, C45, bone graft. Brief History This is a 61 year old male patient PE at Discharge Dressing dry. Brace fits well. Motor examination both arms 5/5. Sensation normal. Mild pain right hip Hospital Course norco 7.5 home pod#1 Pt Condition on Discharge: Stable Discharge Disposition: Discharge Home Discharge Instructions Diet Instructions: As Tolerated, No Restrictions Activities You Can Perform: See Additionl Instruction Additional Activity Instruc.: Cervical brace full-time Roxana Limon Jun 17, 2017 08:07
[2017-06-17] MEDS ORDERED: MULTIVITAMINS/MINERALS THERAPEUTIC TAB PO SCH (09:00)
[2017-06-17] MEDS ORDERED: DOCUSATE SODIUM 100 MG CAP PO SCH (09:00)
--- NOTE | 2017-06-17 09:33 | EKG ---
Date Performed: 06/16/2017 Time Performed: 07:00:33 PTAGE: 61 years EKG: SINUS BRADYCARDIA BORDERLINE ECG Compared to PREVIOUS TRACING , the sinus rate has slowed slightly. PREVIOUS TRACIN08/16/2007 09.00 DOCTOR: Alexi Michael Interpretating Date/Time 06/17/2017 09:31:22
[2017-06-17] MEDS: GABAPENTIN 300 MG CAP PO SCH ×2 (10:13→12:59)
[2017-06-17] MEDS: LACTATED RINGER'S 1000 ML INJ 1,000 ML IV SCH (10:55)
--- NOTE | 2017-06-18 08:54 | MP ---
cc: MALU RETANA M.D. DATE OF SURGERY June 16, 2017 PREOPERATIVE DIAGNOSES 1. C3-4, C4-5 osteophyte disk complex, moderately severe spinal stenosis, spinal cord compression 2. C3-C7 degenerative disc disease and osteoarthritis. 3. Cervical myelopathy with cervical radiculitis and upper extremity weakness. POSTOPERATIVE DIAGNOSES 1. C3-4, C4-5 osteophyte disk complex, moderately severe spinal stenosis, spinal cord compression 2. C3-C7 degenerative disc disease and osteoarthritis. 3. Cervical myelopathy with cervical radiculitis and upper extremity weakness. PROCEDURE C3-4, C4-5 anterior interbody fusion; C3-4, C4-5 Spinet ACC anterior cervical cage; C3-C7 Spinet Rauscher anterior spinal instrumention. SURGEON Yahir Retana MD BATTERY CONTAINER TESTER ALUMINUM Lizbet Gunter PA-C ESTIMATED BLOOD LOSS 50 cc for the entire case. DRAINS None. COMPLICATIONS None. CONDITION Stable. PROCEDURE The patient was brought into the operating room, had satisfactory anesthesia by the Department of Anesthesia. Dr. Jose Retana and myself were co-surgeons. Dr. Jose Retana performed the neurosurgical decompression portion of the procedure at C3-4 and C4-5 and I performed the orthopedic fusion and stabilization procedure at C3-4 and C4-5. My bilingual legal assistant, Lizbet Gunter PA-C, was present for my portion of the surgical case. She was medically necessary for my portion of the case because of the complexity of the case and to facilitate the performance of the procedure. The KEY CUTTER at the back table was not of the skill-set for this case to manipulate the instruments, e.g., the multiple different types of soft tissue retractors, trial implants and permanent implants. Dr. Jose Retana performed right C3-4, C4-5 anterior cervical spin exposure with anterior cervical discecomy, anterior decompression, foraminotomies at C3-4 and C4-5. He also performed right anterior iliac crest bone grafting. I was not present for his portion of the procedure. The endplates at C4-5 were prepared for fusion. The hyaline cartilage endplates were removed using multiple types of angled curettes and burs. A 6, 10 x 12 ACC cage was placed in the interspace. Anterior iliac crest bone graft was placed under fluoroscopic guidance for interbody fusion. The wound was irrigated with copious amounts of sterile saline antibiotic solution. The endplates at C3-4 were prepared for fusion. The hyaline cartilage endplates were removed using angled curets and burs. A 5, 10 x 12 ACC cage was placed in the space. The wound was irrigated again with copious amounts of sterile saline antibiotic solution. All anterior osteophytes were removed with rongeurs and burs. A 43-mm SpineNet Rauscher plate was contoured for the patient's normal cervical lordosis. Transfixion screw was used for appropriate positioning of the plate which was confirmed under fluoroscopic guidance in both the AP and lateral planes. Two screws were used in the vertebral body of C3, C4 and C5. Each of the screws were drilled, each of the screws were inserted which were 14-mm in length, 4.0 mm in outer diameter fixed angle scrwes. Each screw was appropriately locked to the plate. The wound was irrigated with copious amounts of sterile saline antibiotic solution. The wound itself was dry. It was closed in multiple layers using 3-0 Vicryl. The skin was approximated with running subcuticular 4-0 Vicryl, Dermabond placed over the skin incision. Sterile dressings were applied. The patient tolerated the procedure well and arrived in the recovery room in stable and satisfactory condition. MD JENNIE Hamlin/ZORAN /12:32 PM /8:24 AM
== END 2017-06-17 16:00 | disposition home or self-care (01) | DRG 472 ==
LOC: HSDI 06:01 → N06A 16:27
PROVIDERS: ADMIT Orthopaedic Surgery Orthopaedic Surgery of the Spine; ATTEND Orthopaedic Surgery Orthopaedic Surgery of the Spine
PROC: 0RT30ZZ Resection of Cervical Vertebral Disc, Open Approach (ICD-10-PCS; 2017-06-16)
PROC: 0QB20ZZ Excision of Right Pelvic Bone, Open Approach (ICD-10-PCS; 2017-06-16)
PROC: 0RG20A0 Fusion of 2 or more Cervical Vertebral Joints with Interbody Fusion Device, Anterior Approach, Anterior Column, Open Approach (ICD-10-PCS; principal; 2017-06-16 08:44)
DX: M50.01 Cervical disc disorder with myelopathy, high cervical region (principal); G95.20 Unspecified cord compression; M47.12 Other spondylosis with myelopathy, cervical region; M48.02 Spinal stenosis, cervical region; M25.78 Osteophyte, vertebrae; M50.11 Cervical disc disorder with radiculopathy, high cervical region
CPT/HCPCS: 72040; 76000; 93005; C1713; J0131; J0690; J1580; J2175; J2270; J2310; J2370; J2405; J2710; J3010; J3370; J7120